=== PATIENT | male | born 1970 | race Caucasian/White ===

== ENCOUNTER → 2021-07-01 | Outpatient (CLI) | payer BC ==
[2021-07-01 14:31] LABS: BILIRUBIN,TOTAL 0.8 mg/dL (0.2-1.2); C-REACTIVE PROTEIN 3.91 mg/dL (0.00-0.50); CALCIUM 8.9 mg/dL (8.4-10.2); CREATININE, serum 1.24 mg/dL (0.72-1.25); POTASSIUM 3.7 mmol/L (3.5-4.5); TOTAL PROTEIN 6.8 gm/dL (6.2-8.1)
[2021-07-01 15:03] LABS: URIC ACID 4.6 mg/dL (3.5-7.2)
== END ==
LOC: ZCOL.LAB 14:11
PROVIDERS: Family Medicine
DX: M25.531 Pain in right wrist (principal)

== ENCOUNTER → 2021-07-01 | Outpatient (CLI) | payer BC | LOC: COL.RAD 13:03 | DX: M19.031 Primary osteoarthritis, right wrist (principal) ==

== ENCOUNTER → 2021-09-07 | Outpatient (RCR) | payer BC | END | disposition home or self-care (01) | LOC: WSOT | DX: M25.531 Pain in right wrist (principal) ==

== ENCOUNTER 2021-10-05 08:00 | Outpatient (RCR) | payer BC | END 2021-10-07 | disposition home or self-care (01) | LOC: WSOT | DX: M25.531 Pain in right wrist (principal) ==

== ENCOUNTER 2021-10-12 07:59 | Outpatient (RCR) | payer BC | END 2021-11-07 | LOC: WSOT | DX: M25.531 Pain in right wrist (principal) ==

== ENCOUNTER 2023-06-05 06:53 | Day surgery (SDC) | payer BC ==
[~2023-06-05] VITALS: Ht 177.8 cm; Wt 156.4 kg
[~2023-06-05 06:53] MED LIST: LR 1,000 ML IV SCH; Ondansetron 4 MG/2 ML VIAL IV PRN
[2023-06-05] MEDS ORDERED: NEXIUM 40MG40 MG PO (08:09)
[2023-06-05] MEDS ORDERED: BENADRYL50 MG PO (08:09)
[2023-06-05] MEDS ORDERED: NAPROSYN500 MG PO (08:11)
[2023-06-05] MEDS ORDERED: Lidocaine PF 2% (20 MG/ML) 5 ML VIAL ONE (08:35)
[2023-06-05] MEDS ORDERED: CRESTOR 10MG10 MG PO (09:01)
[2023-06-05] MEDS ORDERED: HYZAAR 25 MG-101 TAB PO (09:01)
[2023-06-05] MEDS ORDERED: LEXAPRO 10MG10 MG PO (09:04)
[2023-06-05] MEDS ORDERED: SINGULAIR 110 MG/TAB PO (09:04)
[2023-06-05] MEDS ORDERED: LUNESTA 1MG TAB1 MG PO (09:05)
[2023-06-05] MEDS ORDERED: K-DUR20 MEQ PO (09:06)
[2023-06-05] MEDS ORDERED: DESYREL 50MG50 MG PO (09:06)
[2023-06-05] MEDS ORDERED: GLUCOPHAGE XR500 M1 PO (09:07)
[2023-06-05] MEDS ORDERED: CYMBALTA 20MG20 MG PO (09:07)
[2023-06-05] MEDS ORDERED: OZEMPIC1 MG/0.71 SQ (09:08)
[2023-06-05 09:10] VITALS: BP 129/92; PULSE 84; TEMP 97.8
[2023-06-05 09:25] VITALS: BP 132/84; PULSE 82
--- NOTE | 2023-06-05 09:25 | NUR ---
0718: A&O, NAD, VSS ON RA, STEADY GAIT, COMPLIANT TO BOWEL PREP, THOUGH LIQUID BROWN OUTPUT - TEAM NOTIFIED. CONSENTS OBTAINED. ALL QUESTIONS, CONCERNS ADDRESSED TO PT SATISFACTION. HARD IV STICK, #20 TO LH, 4TH ATTEMPT - TOLERATED WELL. IVF HUNG ORDERED. MED REC UPDATED. IN GOWN AND READY FOR PROCEDURE. IN W/R.
[2023-06-05 09:40] VITALS: BP 134/78; PULSE 75
[2023-06-05 09:55] VITALS: BP 136/62; PULSE 72
[2023-06-05 17:50] VITALS: BP 139/86; PULSE 87; TEMP 97.8
--- NOTE | 2023-06-05 18:05 | NUR ---
1854-0224: PT TO RECOVERY BAY FROM ENDO HEATH S/P COLON A&O, PLACED ON MONITOR, VSS ON RA RECEIVED REPORT AND ASSUMED CARE OF PT FROM ENDO RN AT BEDSIDE PROVIDED FOOD/FLUIDS, TOLERATING WELL MD IN TO SEE PT POST-PROCEDURE PT HAS REMAINED A&O, NAD, VSS ON RA, TOLERATING PO, IS WITHOUT SIGNIFICANT COMPLAINT, WITH STEADY GAIT THRU OUT STAY IV D/C'D. D/C INSTRUCTIONS, ANY FOLLOW UP REVIEWED AND HANDED TO PT. ALL QUESTIONS AND CONCERNS ADDRESSED TO PT SATISFACTION. TAKEN TO EXIT VIA W/C WITH ALL BELONGINGS AND PAPERWORK IN HAND, ASSISTED INTO PASSENGER SEAT OF POV. FAMILY TO DRIVE HOME.
== END 2023-06-05 09:10 | disposition home or self-care (01) ==
LOC: SDCO 06:53
DX: Z12.11 Encounter for screening for malignant neoplasm of colon (principal); I10 Essential (primary) hypertension; Z79.899 Other long term (current) drug therapy; G47.33 Obstructive sleep apnea (adult) (pediatric)
CPT/HCPCS: J2704; J7120

== ENCOUNTER 2023-11-14 15:22 | Emergency (ER) | payer BC ==
[~2023-11-14] VITALS: Ht 177.8 cm; Wt 146.4 kg
[~2023-11-14 15:22] MED LIST changes: +BENADRYL50 MG PO; +CIALIS5 MG PO; +CRESTOR 10MG10 MG PO; +CYMBALTA 20MG20 MG PO; +DESYREL 50MG50 MG PO; +GLUCOPHAGE XR500 M1 PO; +HYZAAR 25 MG-101 TAB PO; +K-DUR20 MEQ PO; +LEXAPRO 10MG10 MG PO; -LR 1,000 ML IV SCH; +LUNESTA 1MG TAB1 MG PO; +NAPROSYN500 MG PO; +NEXIUM 40MG40 MG PO; +OZEMPIC1 MG/0.71 SQ; -Ondansetron 4 MG/2 ML VIAL IV PRN; +SINGULAIR 110 MG/TAB PO; +TESSALON PERLE200 MG PO
[2023-11-14 15:30] VITALS: TEMP 98.6
[2023-11-14] MEDS ORDERED: predniSONE 20 MG TAB PO ONE (16:15)
[2023-11-14 16:16] LABS: BASO % 0.9 % (0.0-2.0); EOS # 0.1 K/mm3 (0.0-0.7); EOS % 2.1 % (0.0-4.0); GRAN # 2.6 K/mm3 (1.4-6.5); GRAN % 55.5 % (42.2-75.2); HEMATOCRIT 47.8 % (42.0-52.0); HEMOGLOBIN 16.6 g/dl (13.5-18.0); LYMPH # 1.4 K/mm3 (1.2-3.4); LYMPH % 29.3 % (20.0-51.0); MEAN CELL VOLUME 88 fl (80.0-100.0); MEAN CORPUSCULAR HEMOGLOBIN 31 pg (27-31); MEAN CORPUSCULAR HGB CONC 35 g/dl (33.0-37.0); MEAN PLATELET VOLUME 8.4 fl (7.4-10.4); MONO # 0.6 K/mm3 (0.1-0.6); MONO % 11.8 % (1.7-9.3); PLATELET COUNT 176 K/mm3 (130-400); RED BLOOD COUNT 5.43 M/mm3 (4.20-5.60); REDCELL DISTRIBUTION WIDTH-CV 13.1 % (11.5-14.5)
[2023-11-14] MEDS ORDERED: Iohexol 300 - 100 ML VIAL IV ONE (16:22)
[2023-11-14] MEDS ORDERED: NS 100 ML IV SCH (16:23)
[2023-11-14 16:31] LABS: ALANINE AMINOTRANSFERASE 52 U/L (0-55); ALBUMIN 4.1 g/dL (3.5-5.0); ALKALINE PHOSPHATASE 71 U/L (40-150); ANION GAP 10 mmol/L (7-16); AST,SGOT 33 U/L (5-34); BILIRUBIN,TOTAL 0.6 mg/dL (0.2-1.2); BLOOD UREA NITROGEN 24 mg/dL (8-26); CALCIUM 9.1 mg/dL (8.4-10.2); CHLORIDE 102 mEq/L (98-107); CREATININE, serum 1.84 mg/dL (0.72-1.25); GLUCOSE 149 mg/dL (70-99); POTASSIUM 3.5 mEq/L (3.5-4.5); SODIUM 139 mEq/L (136-145)
[2023-11-14 16:42] LABS: TROPONIN-I < 0.010 ng/mL (0.00-0.033)
[2023-11-14] MEDS ORDERED: ZOVIRAX400 MG PO (17:44)
[2023-11-14] MEDS ORDERED: PREDNISONE20 MG PO (17:44)
[2023-11-14 18:09] VITALS: BP 159/101; PULSE 83
== END 2023-11-14 18:57 | disposition home or self-care (01) ==
LOC: COL.ER 15:22
PROVIDERS: Emergency Medicine
DX: G51.0 Bell's palsy (principal)
CPT/HCPCS: J7512; Q9967

== ENCOUNTER → 2023-11-27 | Outpatient (CLI) | payer BC ==
[~2023-11-27] MED LIST changes: +PREDNISONE20 MG PO; +ZOVIRAX400 MG PO
== END ==
LOC: COL.RAD 14:52
DX: G51.0 Bell's palsy (principal)